=== PATIENT | male | born 1950 | race African-American/Black ===

== ENCOUNTER 2017-01-26 08:26 | Emergency (ER) | payer MEDICARE ==
[2017-01-26] MEDS ORDERED: ASPIRIN 81 MG TABLET, CHEWABLE PO ONE (08:33)
[2017-01-26] MEDS ORDERED: ACETAMINOPHEN 325 MG TABLET PO ONE (08:36)
[2017-01-26] MEDS ORDERED: NORMAL SALINE 1000 ML 1,000 ML IV ONE (11:23)
[2017-01-26 12:00] LABS: ABSOLUTE MONOCYTES (AUTO) 0.3 10^3/uL (0.1-1.4); ABSOLUTE NEUT (AUTO) 3.5 10^3/uL (1.7-8.2); BASOPHILS % (AUTO) 0.3 % (0-2); EOSINOPHILS % (AUTO) 0.1 % (0-6); HEMATOCRIT 36.7 % (37.9-51.0); HEMOGLOBIN 12.2 g/dL (13.5-17.0); HGB HCT DIFFERENCE -0.1; LYMPHOCYTES % (AUTO) 20.6 % (13-45); MEAN CORPUSCULAR HEMOGLOBIN 33.6 pg (27.0-33.4); MEAN CORPUSCULAR HGB CONC 33.2 g/dL (32.0-36.0); MEAN CORPUSCULAR VOLUME 101 fl (80-97); RED BLOOD COUNT 3.62 10^6/uL (4.35-5.55); RED CELL DISTRIBUTION WIDTH 12.5 % (11.5-14.0); WHITE BLOOD COUNT 4.8 10^3/uL (4.0-10.5)
[2017-01-26 12:19] LABS: ALANINE AMINOTRANSFERASE 19 U/L (21-72); ALBUMIN 4.1 g/dL (3.5-5.0); ALKALINE PHOSPHATASE 95 U/L (38-126); ANION GAP 13 (5-19); ASPARTATE AMINO TRANSFERASE 24 U/L (17-59); BILIRUBIN,TOTAL 0.8 mg/dL (0.2-1.3); BLOOD UREA NITROGEN 13 mg/dL (7-20); CARBON DIOXIDE 24 mmol/L (22-30); CHLORIDE 105 mmol/L (98-107); CREATINE KINASE 252 U/L (55-170); CREATININE RESULT 1.23 mg/dL (0.52-1.25); GLUCOSE 98 mg/dL (75-110); POTASSIUM 4.3 mmol/L (3.6-5.0); TOTAL PROTEIN 8.3 g/dL (6.3-8.2)
[2017-01-26 12:31] LABS: CREATINE KINASE MB 0.49 ng/mL (<4.55)
[2017-01-26 12:35] LABS: TROPONIN I < 0.012 ng/mL
--- NOTE | 2017-01-26 13:04 | ER Document Report ---
ED General - General Chief Complaint: Chest Congestion Stated Complaint: COUGH TRAVEL OUTSIDE OF THE [place] IN LAST 30 DAYS: No - HPI Patient complains to provider of: fever cough chest pain Notes: Patient coming in for evaluation of fever cough chest pain states that chest pain worse with patient's coughing. States constant over the last 3 days. Denies getting a flu shot this year. Patient denies any sick contacts denies any recent antibiotics. Denies any recent travel denies any past medical history. Patient denies nausea vomiting diarrhea. Patient states he has not taken any medication for his symptoms at home. Patient states symptoms worsen I prior to arrival difficulty sleeping. Past Medical History - Social History Smoking Status: Current Some Day Smoker Chew tobacco use (# tins/day): No Frequency of alcohol use: Occasional Drug Abuse: None Family History: Reviewed & Not Pertinent Patient has suicidal ideation: No Patient has homicidal ideation: No Renal/ Medical History: Denies: Hx Peritoneal Dialysis Past Surgical History: Reports: Hx Cholecystectomy - 1976, Hx Kidney (Renal Surgery) - stone removal - 1993, Hx Orthopedic Surgery - L knee scope Review of Systems - Review of Systems Constitutional: Fever EENT: No symptoms reported Cardiovascular: Chest pain - Chest wall pain Respiratory: No symptoms reported Gastrointestinal: No symptoms reported Genitourinary: No symptoms reported Male Genitourinary: No symptoms reported Musculoskeletal: No symptoms reported Skin: No symptoms reported Hematologic/Lymphatic: No symptoms reported Neurological/Psychological: No symptoms reported -: Yes All other systems reviewed and negative Physical Exam - Vital signs Vitals: Temp Pulse Resp BP Pulse Ox 102.3 F H 102 H 16 126/69 H 97 01/26/17 08:36 01/26/17 08:36 01/26/17 08:36 01/26/17 08:36 01/26/17 08:36 Interpretation: Normal - General General appearance: Appears well, Alert - HEENT Head: Normocephalic, Atraumatic Eyes: Normal Pupils: PERRL - Respiratory Respiratory status: No respiratory distress Chest status: Tender - Tender to palpation of the chest wall Breath sounds: Normal Chest palpation: Normal - Cardiovascular Rhythm: Regular Heart sounds: Normal auscultation Murmur: No - Abdominal Inspection: Normal Distension: No distension Bowel sounds: Normal Tenderness: Nontender Organomegaly: No organomegaly - Back Back: Normal, Nontender - Extremities General upper extremity: Normal inspection, Nontender, Normal color, Normal ROM , Normal temperature General lower extremity: Normal inspection, Nontender, Normal color, Normal ROM , Normal temperature, Normal weight bearing. No: Adri's sign - Neurological Neuro grossly intact: Yes Cognition: Normal Orientation: AAOx4 [place] Coma Scale Eye Opening: Spontaneous [place] Coma Scale Verbal: Oriented [place] Coma Scale Motor: Obeys Commands [place] Coma Scale Total: 15 Speech: Normal Motor strength normal: LUE, RUE, LLE, RLE Sensory: Normal - Psychological Associated symptoms: Normal affect, Normal mood - Skin Skin Temperature: Warm Skin Moisture: Dry Skin Color: Normal Course - Re-evaluation Re-evalutation: 01/26/17 18:34 Patient's EKG lab work shows no acute etiology. Patient's flu tested returned negative however more likely patient has a viral etiology. Patient will be discharged home patient was given follow-up information and encouraged to drink plenty of water patient was educated about the disease course of viral illnesses. - Vital Signs Vital signs: Temp Pulse Resp BP Pulse Ox 99.0 F 102 H 17 129/94 H 100 01/26/17 13:17 01/26/17 08:36 01/26/17 13:01 01/26/17 13:01 01/26/17 13:01 - Laboratory Result Diagrams: 01/26/17 11:42 01/26/17 11:42 Laboratory results interpreted by me: 01/26/17 01/26/17 11:42 11:42 RBC 3.62 L Hgb 12.2 L Hct 36.7 L MCV 101 H MCH 33.6 H Est GFR (Non-Af Amer) 59 L ALT 19 L Creatine Kinase 252 H Total Protein 8.3 H Discharge - Discharge Clinical Impression: Viral syndrome, Myalgia Condition: Good Disposition: HOME, SELF-CARE Instructions: Fever ([facility]), Viral Syndrome ([facility]), Chest Wall Pain ([facility]), Family Physicians / Practices Additional Instructions: Take medication as prescribed. Return to ER symptoms worsen. Follow-up with your primary care physician or physicians provided. Prescriptions: Hydrocodone Bit/Acetaminophen [Hydrocodon-Acetaminophen 5-325] 1 each PO Q6 #14 tablet Forms: Return to Work
[2017-01-26 13:22] VITALS: BP 129/94
[2017-01-26 13:50] LABS: APPEARANCE,URINE CLEAR; BILIRUBIN,URINE NEGATIVE (NEGATIVE); GLUCOSE, URINE NEGATIVE (NEGATIVE); KETONES,URINE NEGATIVE (NEGATIVE); LEUKOCYTE ESTERASE,URINE NEGATIVE (NEGATIVE); NITRITE,URINE NEGATIVE (NEGATIVE); PROTEIN,URINE NEGATIVE (NEGATIVE); URINE SPECIFIC GRAVITY 1.008; UROBILINOGEN,URINE NEGATIVE mg/dL (<2.0)
--- NOTE | 2017-01-26 20:37 | EKG REPORT ---
SEVERITY:- ABNORMAL ECG - SINUS RHYTHM CONSIDER LEFT VENTRICULAR HYPERTROPHY : Confirmed by: Chavez Rodriguez MD 26-Jan-2017 20:36:43
--- NOTE | 2017-01-26 20:37 | EKG REPORT ---
SEVERITY:- NORMAL ECG - SINUS RHYTHM : Confirmed by: Chavez Rodriguez MD 26-Jan-2017 20:36:36
== END 2017-01-26 13:16 | disposition home or self-care (01) ==
LOC: ER 08:26
DX: M79.1 Myalgia (principal); B34.9 Viral infection, unspecified; R09.89 Other specified symptoms and signs involving the circulatory and respiratory systems; R05 Cough; R50.9 Fever, unspecified; F17.200 Nicotine dependence, unspecified, uncomplicated; Z90.49 Acquired absence of other specified parts of digestive tract; Z87.442 Personal history of urinary calculi
CPT/HCPCS: 93005; 99284; 36415; 82553; 82550; 85025; 80053; 81001; 84484; 87804; 71020; 93010; A9270 ×2